=== PATIENT | male | born 1970 | race Caucasian/White ===

== ENCOUNTER 2016-07-06 11:22 | Emergency (ER) | payer OTHER ==
[2016-07-06 11:37] VITALS: BP 133/75
--- NOTE | 2016-07-06 12:07 | ERNOTE ---
Head Injury HPI - Narrative Date of Service: 07/06/16 - General Injury to: head Time Seen by Provider: 07/06/16 11:45 Source: patient, RN notes reviewed Exam Limitations: no limitations - Immun/Allergies/Home Medications Immunization: IMMUNIZATION HX History of Influenza Vaccine No Hx Pneumococcal Vaccination No Allergies/Adverse Reactions: Allergies Allergy/AdvReac Type Severity Reaction Status Date / Time Penicillins Allergy Verified 07/06/16 11:37 Home Medications: HOME MEDICATIONS NK [No Home Medication] 02/23/15 [Last Taken Unknown] - History of Present Illness Narrative: 46 y/o male brought to the ED by a 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 He turned his head suddenly and struck the left parietal/temporal region on a large piece of steel. He reports having to catch himself to keep from falling over. He did not lose consciousness but was reported to be dazed and have difficulty speaking that began about 20 minutes after the injury. He also reported blurred vision. He reports a severe headache and nausea but no vomiting. He is concerned about a contusion at the site of the injury. Occurred: this morning Location Occurred: work Head Injury Location: temporal, parietal Method of Injury: Reports: direct blow Loss of Consciousness: Reports: no loss of consciousness, dazed, remembers event , remembers coming to hospital Associated Symptoms: Reports: headaches, neck pain, nausea. Denies: chest pain , cough, shortness of breath, fever/chills, diaphoresis, weakness, syncope, seizure, vomiting Review of Systems - Review of Systems Constitutional: Absent: recent illness, fever, chills EYE: Present: blurred vision. Absent: eye pain, eye discharge ENT: Absent: ear discharge, nasal drainage Respiratory: Present: See HPI Cardiology: Present: See HPI Gastrointestinal/Abdominal: Present: See HPI Genitourinary: Present: no symptoms reported Musculoskeletal: Present: See HPI Skin: Present: lumps. Absent: lesions Neurological: Present: headache, dizziness/light-headedness Endocrine: Present: no symptoms reported Hematologic/Lymphatic: Present: no symptoms reported Psych: Present: no symptoms reported - Patient's Past Medical History Patient History - Medical: No pertinent hx Patient History - Cardiac/Respiratory: No pertinent hx Patient History - Cancer: No Hx of Cancer Patient History - Surgical Procedures: No surgical history Patient History - Other: None - Social History Living Situations: home Smoking Status: Current every day smoker Cigarettes Packs Per Day: 1 Have you smoked in the past 12 months: Yes - Immunizations Hx Pneumococcal Vaccination: No History of Influenza Vaccine: No Physical Exam - Physical Exam General Appearance: Present: wd/wn, alert, anxious Eye Exam: Normal inspection: bilateral, PERRL: bilateral, EOMI: bilateral Ears, Nose, Throat: Present: normal ENT inspection, hearing grossly normal, normal pharynx Neck: Present: supple, limited range of motion, tender posterior midline Respiratory: Present: no respiratory distress, normal breath sounds, no accessory muscle use, lungs clear Cardiovascular/Chest: Present: regular rate, rhythm, no murmur, normal peripheral pulses Neurological Exam: Present: alert, oriented, normal mood/affect, no motor/ sensory deficits Skin Exam: Present: normal color, warm/dry, other - small contusion to left parietal/temporal region, tender to palpation ED Progress - Vital Signs Patient's Vital Signs:: I have reviewed the patient's vital signs. Vital Signs: Vital Signs 07/06/16 11:35 Temperature 36.6 C Pulse Rate 75 Respiratory 14 Rate Blood Pressure 133/75 O2 Sat by Pulse 97 Oximetry - CT/Ultrasound CT/Ultrasound Narrative: No acute findings on non-contrast CT scans of head and cervical spine - Progress/Reassessment Chief Complaint: Head Injury Progress:: Unchanged Plan - Plan Plan: Tylenol given for headache. Discussed normal CT results. Patient will return to work tomorrow without restrictions as his job is reported to not be overly strenuous. Discussed indications for needing immediate follow-up and to scheduled an appt in occupational health for recheck. Departure Clinical Impression: Closed head injury Qualifiers: Encounter type: initial encounter Qualified Code(s): S09.90XA - Unspecified injury of head, initial encounter - Departure Disposition: Home Follow Up Needed Condition: Stable Instructions: Head Injury, Adult, [id number] Additional Instructions: Tylenol and/or ibuprofen for headache Rest, avoid overexertion Follow up in occupational health as scheduled, or return to the ED if symptoms worsen Referrals: Monse Griffith ARNP [[facility]] -
[2016-07-06] MEDS ORDERED: ACETAMINOPHEN 500 MG TABLET PO ONE (12:50)
== END 2016-07-06 12:55 | disposition home or self-care (01) ==
LOC: ER 11:22
DX: S09.90XA Unspecified injury of head, initial encounter (principal); Z72.0 Tobacco use; X58.XXXA Exposure to other specified factors, initial encounter; Y99.0 Civilian activity done for income or pay